=== PATIENT | female | born 1955 | race Caucasian/White ===

== ENCOUNTER → 2016-12-12 | Outpatient (CLI) | payer OTHER ==
[~2016-12-12] MED LIST: ALBU8.5H5 INH; ALEN70TA5 PO; AMIT10TA PO; ASCO10004 PO; ASPI-515 PO; ATOR40TA78 PO; CALCIUM PO; CHOL200024 PO; GADOBUTROL 10 MMOL/10 ML VIAL ONE; OMEGA 3 KRILL OIL PO
== END | disposition home or self-care (01) ==
LOC: CFH 13:43
PROVIDERS: ATTEND Surgery
DX: D05.92 Unspecified type of carcinoma in situ of left breast (principal)
CPT/HCPCS: 82565; A9585; C8908

== ENCOUNTER → 2017-01-15 | Outpatient (CLI) | payer OTHER ==
[~2017-01-15] MED LIST changes: -GADOBUTROL 10 MMOL/10 ML VIAL ONE
[2017-01-15 13:04] LABS: HEMATOCRIT 47.9 % (34.6-47.8); HEMOGLOBIN 15.9 g/dL (11.7-16.4); WHITE BLOOD COUNT 6.4 x10^3/uL (3.4-10)
[2017-01-15 13:24] LABS: ASPARTATE AMINO TRANSFERASE 26 U/L (15-37); BLOOD UREA NITROGEN 10 mg/dL (7-18)
== END | disposition home or self-care (01) ==
LOC: CFH 11:22
PROVIDERS: ATTEND Nurse Practitioner Family
DX: Z00.01 Encounter for general adult medical examination with abnormal findings (principal); I10 Essential (primary) hypertension; E55.9 Vitamin D deficiency, unspecified
CPT/HCPCS: 36415; 80053; 80061; 82306; 84439; 84443; 85025

== ENCOUNTER → 2017-02-24 | Outpatient (CLI) | payer OTHER ==
[2017-02-24 15:36] LABS: PATH.CAST-FLAG NOT PRESENT; SPERM-FLAG NOT PRESENT; SRC-FLAG NOT PRESENT; XTAL-FLAG NOT PRESENT; YLC-FLAG NOT PRESENT
[2017-02-24 15:38] LABS: HEMATOCRIT 46.1 % (34.6-47.8); HEMOGLOBIN 15.8 g/dL (11.7-16.4)
[2017-02-24 15:45] LABS: BLOOD UREA NITROGEN 15 mg/dL (7-18)
[2017-02-24 15:50] LABS: ASPARTATE AMINO TRANSFERASE 20 U/L (15-37)
[2017-02-26 14:22] LABS: ANA SCREEN NEGATIVE (Negative)
== END | disposition home or self-care (01) ==
LOC: CFH 14:52
PROVIDERS: ATTEND Nurse Practitioner Family
DX: R94.5 Abnormal results of liver function studies (principal); R74.8 Abnormal levels of other serum enzymes
CPT/HCPCS: 36415; 80053; 81001; 82977; 84550; 85025; 85651; 86038; 86063

== ENCOUNTER → 2017-07-31 | Outpatient (CLI) | payer OTHER ==
[2017-07-31 12:50] LABS: ANION GAP 8 mmol/L (5-15); CHLORIDE 106 mmol/L (98-107)
[2017-07-31 13:03] LABS: ALANINE AMINOTRANSFERASE 35 U/L (12-78); ALBUMIN 3.8 g/dL (3.4-5.0); ALKALINE PHOSPHATASE 116 U/L (45-117); BILIRUBIN,TOTAL 0.5 mg/dL (0.2-1.0); TOTAL PROTEIN 7.4 g/dL (6.4-8.2)
== END | disposition home or self-care (01) ==
LOC: CFH 10:48
PROVIDERS: ATTEND Specialist
DX: M81.0 Age-related osteoporosis without current pathological fracture (principal); Z79.899 Other long term (current) drug therapy
CPT/HCPCS: 36415; 80053; 82306; 83970; 84443

== ENCOUNTER → 2017-11-12 | Outpatient (CLI) | payer OTHER ==
[2017-11-12 12:42] LABS: BASOPHILS # (AUTO) 0.03 x10^3/uL (0-0.1); BASOPHILS % (AUTO) 1 % (0-1); EOSINOPHILS # (AUTO) 0.24 x10^3/uL (0-0.4); EOSINOPHILS % (AUTO) 4 % (1-7); LYMPHOCYTES # (AUTO) 1.84 x10^3/uL (1-3.4); LYMPHOCYTES % (AUTO) 33 % (22-44); MD NO; MEAN CORPUSCULAR HEMOGLOBIN 31.7 pg (27.0-34.8); MEAN CORPUSCULAR HGB CONC 33.9 g/dL (32.4-35.8); MEAN CORPUSCULAR VOLUME 93.4 fL (80-100); MEAN PLATELET VOLUME 7.9 fL (7.4-10.4); MONOCYTES # (AUTO) 0.47 x10^3/uL (0.2-0.8); MONOCYTES % (AUTO) 8 % (2-9); NEUTROPHILS # (AUTO) 3.03 x10^3/uL (1.8-6.8); NEUTROPHILS % (AUTO) 54 % (42-75); PLATELET COUNT 256 x10^3/uL (130-400); RED BLOOD COUNT 4.75 x10^6/uL (3.82-5.3); RED CELL DISTRIBUTION WIDTH 13.3 % (9.6-15.2)
[2017-11-12 14:38] LABS: CHLORIDE 109 mmol/L (98-107)
[2017-11-12 14:55] LABS: ALANINE AMINOTRANSFERASE 37 U/L (12-78); ALBUMIN 3.6 g/dL (3.4-5.0); ALKALINE PHOSPHATASE 92 U/L (45-117); ANION GAP 5 mmol/L (5-15); BILIRUBIN,TOTAL 0.4 mg/dL (0.2-1.0); CALCIUM 8.6 mg/dL (8.5-10.1); CHOL/HDL RATIO 5.1; CHOLESTEROL, TOTAL 258 mg/dL (140-239); CREATININE 0.66 mg/dL (0.55-1.02); HDL CHOL % 20 % (28-40); HDL CHOLESTEROL (DIRECT) 51 mg/dL (40-60); LDL CHOLESTEROL,CALCULATED 136 mg/dL (54-169); LDL/HDL RATIO 2.7 (0.5-3.0); TOTAL PROTEIN 7.1 g/dL (6.4-8.2); TRIGLYCERIDES 354 mg/dL (50-200); VLDL CHOLESTEROL 71 mg/dL (0-25)
== END | disposition home or self-care (01) ==
LOC: CFH 08:31
PROVIDERS: ATTEND Nurse Practitioner Family
DX: Z12.31 Encounter for screening mammogram for malignant neoplasm of breast (principal); Z00.01 Encounter for general adult medical examination with abnormal findings; M19.071 Primary osteoarthritis, right ankle and foot; M21.071 Valgus deformity, not elsewhere classified, right ankle; E55.9 Vitamin D deficiency, unspecified; M81.0 Age-related osteoporosis without current pathological fracture; F44.9 Dissociative and conversion disorder, unspecified; E78.00 Pure hypercholesterolemia, unspecified
CPT/HCPCS: 36415; 77063; 80053; 80061; 82306; 84443; 85025; 77067

== ENCOUNTER → 2018-03-10 | Outpatient (CLI) | payer OTHER ==
[2018-03-10 12:40] LABS: BASOPHILS # (AUTO) 0.03 x10^3/uL (0-0.1); BASOPHILS % (AUTO) 1 % (0-1); EOSINOPHILS # (AUTO) 0.35 x10^3/uL (0-0.4); EOSINOPHILS % (AUTO) 6 % (1-7); LYMPHOCYTES # (AUTO) 1.99 x10^3/uL (1-3.4); LYMPHOCYTES % (AUTO) 34 % (22-44); MD NO; MEAN CORPUSCULAR HEMOGLOBIN 31.3 pg (27.0-34.8); MEAN CORPUSCULAR HGB CONC 33.5 g/dL (32.4-35.8); MEAN CORPUSCULAR VOLUME 93.3 fL (80-100); MEAN PLATELET VOLUME 8.6 fL (7.4-10.4); MONOCYTES # (AUTO) 0.53 x10^3/uL (0.2-0.8); MONOCYTES % (AUTO) 9 % (2-9); NEUTROPHILS # (AUTO) 2.95 x10^3/uL (1.8-6.8); NEUTROPHILS % (AUTO) 50 % (42-75); PLATELET COUNT 234 x10^3/uL (130-400); RED BLOOD COUNT 4.91 x10^6/uL (3.82-5.3); RED CELL DISTRIBUTION WIDTH 13.5 % (9.6-15.2)
[2018-03-10 12:51] LABS: CHLORIDE 108 mmol/L (98-107)
[2018-03-10 13:00] LABS: ALANINE AMINOTRANSFERASE 38 U/L (12-78); ALBUMIN 3.7 g/dL (3.4-5.0); ALKALINE PHOSPHATASE 91 U/L (45-117); ANION GAP 4 mmol/L (5-15); BILIRUBIN,TOTAL 0.3 mg/dL (0.2-1.0); CALCIUM 9.1 mg/dL (8.5-10.1); CHOL/HDL RATIO 2.9; CHOLESTEROL, TOTAL 168 mg/dL (140-239); CREATININE 0.69 mg/dL (0.55-1.02); HDL CHOL % 34 % (28-40); HDL CHOLESTEROL (DIRECT) 57 mg/dL (40-60); LDL CHOLESTEROL,CALCULATED 60 mg/dL (54-169); LDL/HDL RATIO 1.1 (0.5-3.0); TOTAL PROTEIN 7.7 g/dL (6.4-8.2); TRIGLYCERIDES 253 mg/dL (50-200); VLDL CHOLESTEROL 51 mg/dL (0-25)
== END | disposition home or self-care (01) ==
LOC: CFH 09:43
PROVIDERS: ATTEND Specialist
DX: M81.0 Age-related osteoporosis without current pathological fracture (principal); M85.80 Other specified disorders of bone density and structure, unspecified site; E78.5 Hyperlipidemia, unspecified
CPT/HCPCS: 36415; 80053; 80061; 85025

== ENCOUNTER → 2018-06-16 | Outpatient (CLI) | payer OTHER ==
[~2018-06-16] MED LIST changes: -ALEN70TA5 PO; +ALEN70TA6 PO
[2018-06-16 12:39] LABS: BASOPHILS # (AUTO) 0.04 x10^3/uL (0-0.1); BASOPHILS % (AUTO) 1 % (0-1); EOSINOPHILS # (AUTO) 0.37 x10^3/uL (0-0.4); EOSINOPHILS % (AUTO) 6 % (1-7); LYMPHOCYTES # (AUTO) 1.88 x10^3/uL (1-3.4); LYMPHOCYTES % (AUTO) 30 % (22-44); MD NO; MEAN CORPUSCULAR HEMOGLOBIN 32.2 pg (27.0-34.8); MEAN CORPUSCULAR HGB CONC 34.2 g/dL (32.4-35.8); MEAN CORPUSCULAR VOLUME 94.2 fL (80-100); MEAN PLATELET VOLUME 8.3 fL (7.4-10.4); MONOCYTES # (AUTO) 0.48 x10^3/uL (0.2-0.8); MONOCYTES % (AUTO) 8 % (2-9); NEUTROPHILS # (AUTO) 3.56 x10^3/uL (1.8-6.8); NEUTROPHILS % (AUTO) 56 % (42-75); PLATELET COUNT 255 x10^3/uL (130-400); RED BLOOD COUNT 4.71 x10^6/uL (3.82-5.3)
[2018-06-16 13:27] LABS: CHLORIDE 105 mmol/L (98-107)
[2018-06-16 13:51] LABS: ALANINE AMINOTRANSFERASE 25 U/L (12-78); ALBUMIN 3.9 g/dL (3.4-5.0); ALKALINE PHOSPHATASE 77 U/L (45-117); ANION GAP 8 mmol/L (5-15); BILIRUBIN,TOTAL 0.4 mg/dL (0.2-1.0); CALCIUM 9.1 mg/dL (8.5-10.1); CHOL/HDL RATIO 2.9; CHOLESTEROL, TOTAL 195 mg/dL (140-239); CREATININE 0.69 mg/dL (0.55-1.02); FREE T4 (FREE THYROXINE) 0.91 ng/dL (0.76-1.46); HDL CHOL % 34 % (28-40); HDL CHOLESTEROL (DIRECT) 67 mg/dL (40-60); LDL CHOLESTEROL,CALCULATED 100 mg/dL (54-169); LDL/HDL RATIO 1.5 (0.5-3.0); TOTAL PROTEIN 7.4 g/dL (6.4-8.2); TRIGLYCERIDES 140 mg/dL (50-200); VLDL CHOLESTEROL 28 mg/dL (0-25)
[2018-06-16 16:28] LABS: HEMOGLOBIN A1C 5.6 % (4.2-6.3)
== END | disposition home or self-care (01) ==
LOC: CFH 09:47
PROVIDERS: ATTEND Nurse Practitioner Family
DX: I10 Essential (primary) hypertension (principal); E78.5 Hyperlipidemia, unspecified; R73.01 Impaired fasting glucose
CPT/HCPCS: 36415; 80053; 80061; 83036; 84439; 84443; 85025

== ENCOUNTER → 2018-09-15 | Outpatient (CLI) | payer OTHER ==
[2018-09-15 13:10] LABS: ALBUMIN 3.9 g/dL (3.4-5.0); ANION GAP 6 mmol/L (5-15); CALCIUM 9.1 mg/dL (8.5-10.1); CHLORIDE 106 mmol/L (98-107)
[2018-09-15 13:15] LABS: ALANINE AMINOTRANSFERASE 37 U/L (12-78); ALKALINE PHOSPHATASE 78 U/L (45-117); BILIRUBIN,TOTAL 0.6 mg/dL (0.2-1.0); CREATININE 0.68 mg/dL (0.55-1.02); TOTAL PROTEIN 7.4 g/dL (6.4-8.2)
== END | disposition home or self-care (01) ==
LOC: CFH 11:31
PROVIDERS: ATTEND Nurse Practitioner
DX: M81.0 Age-related osteoporosis without current pathological fracture (principal)
CPT/HCPCS: 36415; 80053

== ENCOUNTER → 2018-10-22 | Outpatient (CLI) | payer OTHER, MEDICARE ==
[2018-10-22 12:38] LABS: ALBUMIN 3.9 g/dL (3.4-5.0); CALCIUM 8.6 mg/dL (8.5-10.1); CHLORIDE 106 mmol/L (98-107)
[2018-10-22 12:44] LABS: ALANINE AMINOTRANSFERASE 34 U/L (12-78); ALKALINE PHOSPHATASE 81 U/L (45-117); ANION GAP 3 mmol/L (5-15); BILIRUBIN,TOTAL 0.5 mg/dL (0.2-1.0); CHOL/HDL RATIO 3.4; CHOLESTEROL, TOTAL 239 mg/dL (140-239); CREATININE 0.69 mg/dL (0.55-1.02); HDL CHOL % 30 % (28-40); HDL CHOLESTEROL (DIRECT) 71 mg/dL (40-60); LDL CHOLESTEROL,CALCULATED 122 mg/dL (54-169); LDL/HDL RATIO 1.7 (0.5-3.0); TOTAL PROTEIN 7.5 g/dL (6.4-8.2); TRIGLYCERIDES 228 mg/dL (50-200); VLDL CHOLESTEROL 46 mg/dL (0-25)
[2018-10-22 12:49] LABS: HEMOGLOBIN A1C 5.7 % (4.2-6.3)
[2018-10-22 12:51] LABS: BASOPHILS # (AUTO) 0.03 x10^3/uL (0-0.1); BASOPHILS % (AUTO) 1 % (0-1); EOSINOPHILS # (AUTO) 0.36 x10^3/uL (0-0.4); EOSINOPHILS % (AUTO) 6 % (1-7); LYMPHOCYTES # (AUTO) 2.08 x10^3/uL (1-3.4); LYMPHOCYTES % (AUTO) 35 % (22-44); MD NO; MEAN CORPUSCULAR HEMOGLOBIN 32.4 pg (27.0-34.8); MEAN CORPUSCULAR HGB CONC 33.7 g/dL (32.4-35.8); MEAN CORPUSCULAR VOLUME 96.3 fL (80-100); MEAN PLATELET VOLUME 8.1 fL (7.4-10.4); MONOCYTES # (AUTO) 0.49 x10^3/uL (0.2-0.8); MONOCYTES % (AUTO) 8 % (2-9); NEUTROPHILS # (AUTO) 3.05 x10^3/uL (1.8-6.8); NEUTROPHILS % (AUTO) 51 % (42-75); PLATELET COUNT 235 x10^3/uL (130-400); RED BLOOD COUNT 4.86 x10^6/uL (3.82-5.3); RED CELL DISTRIBUTION WIDTH 13.6 % (9.6-15.2)
== END | disposition home or self-care (01) ==
LOC: CFH 09:28
PROVIDERS: ATTEND Nurse Practitioner Family
DX: E78.00 Pure hypercholesterolemia, unspecified (principal); F32.9 Major depressive disorder, single episode, unspecified; R53.82 Chronic fatigue, unspecified; R73.01 Impaired fasting glucose
CPT/HCPCS: 36415; 80053; 80061; 83036; 85025

== ENCOUNTER → 2018-12-01 | Outpatient (CLI) | payer MEDICARE, OTHER | END | disposition home or self-care (01) | LOC: CFH 11:02 | PROVIDERS: ATTEND Obstetrics & Gynecology | DX: Z12.31 Encounter for screening mammogram for malignant neoplasm of breast (principal) | CPT/HCPCS: 77063; 77067 ==

== ENCOUNTER → 2019-04-28 | Outpatient (CLI) | payer MEDICARE, OTHER | END | disposition home or self-care (01) | LOC: CFH 12:25 | DX: Z13.820 Encounter for screening for osteoporosis (principal); M81.0 Age-related osteoporosis without current pathological fracture | CPT/HCPCS: 77080 ==

== ENCOUNTER → 2020-01-25 | Outpatient (CLI) | payer MEDICARE, OTHER ==
[~2020-01-25] MED LIST changes: +ASCO100018 PO; -ASCO10004 PO
== END | disposition home or self-care (01) ==
LOC: CFH 13:40
PROVIDERS: ATTEND Nurse Practitioner Family
DX: C50.919 Malignant neoplasm of unspecified site of unspecified female breast (principal); R92.0 Mammographic microcalcification found on diagnostic imaging of breast
CPT/HCPCS: 77065